=== PATIENT | female | born 1990 | race Two or more races ===

== ENCOUNTER 2019-12-08 14:58 | Observation (INO) | payer OTHER | END 2019-12-08 16:15 | disposition home or self-care (01) | DRG 833 | LOC: LDRP 14:58 | PROVIDERS: ADMIT Specialist; ATTEND Specialist | DX: O24.415 Gestational diabetes mellitus in pregnancy, controlled by oral hypoglycemic drugs (principal); Z3A.31 31 weeks gestation of pregnancy | CPT/HCPCS: 76818; 81002; 82962; G0378 ==

== ENCOUNTER 2019-12-13 15:30 | Observation (INO) | payer OTHER | END 2019-12-13 16:40 | disposition home or self-care (01) | DRG 833 | LOC: LDRP 15:30 | PROVIDERS: ADMIT Obstetrics & Gynecology; ATTEND Obstetrics & Gynecology | DX: O24.419 Gestational diabetes mellitus in pregnancy, unspecified control (principal); Z87.891 Personal history of nicotine dependence; Z3A.32 32 weeks gestation of pregnancy | CPT/HCPCS: 59025; 76818; 81002; 82948; 82962; G0378 ==

== ENCOUNTER 2019-12-15 15:11 | Observation (INO) | payer OTHER ==
[2019-12-15] MEDS ORDERED: METF-370 PO (16:41)
[2019-12-15] MEDS ORDERED: PREN-96 PO (16:41)
== END 2019-12-15 16:55 | disposition home or self-care (01) | DRG 833 ==
LOC: LDRP 15:11
PROVIDERS: ADMIT Specialist; ATTEND Specialist
DX: O24.415 Gestational diabetes mellitus in pregnancy, controlled by oral hypoglycemic drugs (principal); Z3A.32 32 weeks gestation of pregnancy
CPT/HCPCS: 76818; 81002; 82962; G0378

== ENCOUNTER 2020-01-25 10:00 | Observation (INO) | payer OTHER ==
[~2020-01-25 10:00] MED LIST: METF-370 PO; PREN-96 PO
[2020-01-25 11:00] LABS: Basophils # (auto) 0 10 ^3/uL (0-0.2); Basophils % (auto) 0.4 % (0.0-2.0); Eosinophils # (auto) 0.1 10 ^3/uL (0-0.8); Eosinophils % (auto) 0.8 % (0.0-7.0); Hematocrit 37.5 % (36.0-46.0); Hemoglobin 12.8 g/dL (12.2-16.2); Lymphocytes # (auto) 2.3 10 ^3/uL (0.4-5.4); Lymphocytes % (auto) 27.6 % (10.0-50.0); Mean Corpuscular Hemoglobin 31.2 pg (28.0-32.0); Mean Corpuscular Volume 91.6 fL (80.0-100.0); Monocytes # (auto) 0.6 10 ^3/uL (0-1.3); Monocytes % (auto) 6.9 % (0.0-12.0); Neutrophils # (auto) 5.3 10 ^3/uL (1.6-8.6); Neutrophils % (auto) 64.3 % (37.0-80.0); Nucleated Red Blood Cells % 0.2 %; Platelet Count (auto) 214 10^3/uL (140-450); Red Blood Cells 4.09 10^6/uL (4.0-5.20); White Blood Cell 8.3 10^3/uL (4.4-10.8)
[2020-01-25 11:13] LABS: INR 0.9 (0.9-1.15); Partial Thromboplastin Time 26.5 sec (23.64-32.05)
[2020-01-25 11:13] LABS: Urine Bacteria MANY /hpf (None Seen); Urine Blood Negative /uL (Negative); Urine Mucus FEW (None Seen); Urine Specific Gravity 1.019 (1.001-1.035); Urine WBC 5 /hpf (0 - 5)
[2020-01-25 11:14] LABS: Albumin 2.6 g/dL (3.4-5.0); Calcium 8.4 mg/dL (8.5-10.1); Potassium 4.1 mmol/L (3.5-5.1)
[2020-01-25 11:18] LABS: Bilirubin, Total 0.4 mg/dL (0.2-1.0); Total Protein 6.7 g/dL (6.4-8.2); Uric Acid 2.6 mg/dL (2.6-6.0)
== END 2020-01-25 12:05 | disposition home or self-care (01) | DRG 833 ==
LOC: LDRP 10:00
PROVIDERS: ADMIT Specialist; ATTEND Specialist
DX: O62.9 Abnormality of forces of labor, unspecified (principal); Z3A.38 38 weeks gestation of pregnancy
CPT/HCPCS: 36415; 59025; 80053; 81001; 81002; 84550; 85025; 85610; 85730; G0378

== ENCOUNTER 2020-01-27 09:16 | Inpatient (IN) | payer OTHER ==
[~2020-01-27] VITALS: Ht 167.6 cm; Wt 77.1 kg
[2020-01-27 13:16] LABS: Urine Total Volume, 24 Hours 1200 mL
[2020-01-27 13:58] LABS: Protein, Urine 46 mg/dL (0.0-11.9)
[2020-01-27 14:03] LABS: 24 Hr. Total Protein, Urine 552 mg/24 Hr (<149.1)
[2020-01-27] MEDS ORDERED: PHISODERM TOP SOLN 240ML BTL TOP PRN (14:15)
[2020-01-27] MEDS ORDERED: LACT. RINGERS/OXYTOCIN 20UNITS 1,000 ML IV SCH (14:15)
[2020-01-27] MEDS ORDERED: DERMOPLAST 60ML BOTTLE TOP PRN (14:15)
[2020-01-27] MEDS ORDERED: WITCH HAZEL-GLYCERIN PAD TOP PRN (14:15)
[2020-01-27] MEDS ORDERED: LIDOCAINE 2%HCL (LOCAL ANESTH.) INJ 20ML MDV ID PRN (14:15)
[2020-01-27 15:19] LABS: INR 0.91 (0.9-1.15); Partial Thromboplastin Time 26.3 sec (23.64-32.05)
[2020-01-27 15:20] LABS: Basophils # (auto) 0 10 ^3/uL (0-0.2); Basophils % (auto) 0.3 % (0.0-2.0); Eosinophils # (auto) 0.1 10 ^3/uL (0-0.8); Eosinophils % (auto) 0.6 % (0.0-7.0); Hematocrit 40.3 % (36.0-46.0); Hemoglobin 13.5 g/dL (12.2-16.2); Lymphocytes # (auto) 2.1 10 ^3/uL (0.4-5.4); Lymphocytes % (auto) 23.9 % (10.0-50.0); Mean Corpuscular Hemoglobin 30.7 pg (28.0-32.0); Mean Corpuscular Hgb Conc. 33.4 g/dL (32.0-36.0); Mean Corpuscular Volume 91.8 fL (80.0-100.0); Monocytes # (auto) 0.5 10 ^3/uL (0-1.3); Monocytes % (auto) 5.1 % (0.0-12.0); Neutrophils # (auto) 6.3 10 ^3/uL (1.6-8.6); Neutrophils % (auto) 70.1 % (37.0-80.0); Nucleated Red Blood Cells % 0.1 %; Platelet Count (auto) 216 10^3/uL (140-450); Red Blood Cells 4.39 10^6/uL (4.0-5.20)
[2020-01-27 15:21] LABS: Albumin 2.6 g/dL (3.4-5.0); BUN/Creatinine Ratio 14.5; Calcium 8.4 mg/dL (8.5-10.1); Potassium 3.6 mmol/L (3.5-5.1); Uric Acid 3.2 mg/dL (2.6-6.0)
[2020-01-27] MEDS: LACTATED RINGER'S 1,000 ML IV SCH ×2 (15:23→22:15)
[2020-01-27 15:24] LABS: Bilirubin, Total 0.4 mg/dL (0.2-1.0); Total Protein 6.9 g/dL (6.4-8.2)
[2020-01-27] MEDS ORDERED: GLYB1.257 PO (16:13)
[2020-01-27] MEDS ORDERED: TERBUTALINE SULFATE 1 MG/ML 1ML VIAL SC ONE (17:00)
[2020-01-27 17:04] LABS: Urine Bacteria FEW /hpf (None Seen); Urine Blood Negative /uL (Negative); Urine Mucus FEW (None Seen); Urine Specific Gravity 1.017 (1.001-1.035); Urine WBC 1 /hpf (0 - 5)
[2020-01-27 17:16] LABS: Alcohol, Urine < 3.0 mg/dL (0-10); Amphetamine Screen, Urine NEGATIVE (NEGATIVE); Barbiturate Scree,Urine NEGATIVE (NEGATIVE); Benzodiazephine Screen, Urine NEGATIVE (NEGATIVE); Cannabinoid Screen, Urine NEGATIVE (NEGATIVE); Cocaine Screen, Urine NEGATIVE (NEGATIVE); Opiate Scree,Urine NEGATIVE (NEGATIVE); Phencyclidine Screen, Urine NEGATIVE (NEGATIVE)
--- NOTE | 2020-01-27 23:00 | NUR ---
Dr. Osorio in nurses station. Made aware of blood pressures. Orders received to continue with current plan of care and to perform a fasting blood sugar at 01/28/2020 at 0530.
[2020-01-27] MEDS: IBUPROFEN 600 MG TAB PO PRN (23:50)
[2020-01-28] VITALS (9 sets, daily range): BP systolic 122–148; BP diastolic 70–94
--- NOTE | 2020-01-28 00:14 | NUR ---
Ambulation: Patient OOB with standby assistance by RN. Patient ambulated to bathroom with steady gait. Patient able to void 250ml without difficulty. Pericare teaching provided with returned demonstration by patient. Clean gown provided. Patient ambulated to bed in room 8B via steady gait and no distress noted.
[2020-01-28] MEDS: IBUPROFEN 600 MG TAB PO PRN ×2 (07:21→21:43)
--- NOTE | 2020-01-28 11:40 | NUR ---
Dr Devon liz on patient, blood pressures x 3 reviewed t/o this shift. orders to continue to monitor at this time Addendum: 01/28/20 at 1141 by JAKUB ALONZO RN Amended: Links added.
--- NOTE | 2020-01-28 20:16 | NUR ---
SBAR given to residential concierge physician including BP obtained on this shift. Orders received to continue current POC.
--- NOTE | 2020-01-28 20:40 | NUR ---
Provider calls unit, orders received for Labetalol 100mg PO BID.
[2020-01-28] MEDS: LABETALOL HCL 200 MG TAB PO SCH (21:45)
[2020-01-29 02:46] VITALS: BP 126/76
[2020-01-29] MEDS: IBUPROFEN 600 MG TAB PO PRN (05:01)
[2020-01-29 07:29] VITALS: BP 138/78
--- NOTE | 2020-01-29 09:15 | NUR ---
report given to Megan Farooq RN
--- NOTE | 2020-01-29 10:08 | NUR ---
Discharge: Discharge instructions given as ordered. Pt encouraged to follow up with [facility] as instructed. All questions and concerns addressed. Patient verbalized understanding. Medication reconciliation completed and copy given to patient. All required/requested vaccines given and copies of vaccinations given to patient. Patient encouraged to prepare to depart unit.
[2020-01-29] MEDS: LABETALOL HCL 200 MG TAB PO SCH (10:13)
--- NOTE | 2020-01-29 10:40 | NUR ---
Labetelol 100mg bid #[id number] called into pts pharmacy [facility] on [address] Gates orders
[2020-01-29 11:00] VITALS: BP 127/85
--- NOTE | 2020-01-29 12:00 | NUR ---
Discharge: Patient taken to vehicle ambulating with all personal belongings, accompanied by staff and family member. No distress noted at time of departure, no adverse changes in status since initial assessment.
== END 2020-01-29 12:00 | disposition home or self-care (01) | DRG 806 ==
LOC: LDRP 09:16 → OBSVTOIN 14:20 → LDRP 15:29
PROVIDERS: ADMIT Specialist; ATTEND Specialist
PROC: 10E0XZZ Delivery of Products of Conception, External Approach (ICD-10-PCS; principal; 2010-01-26)
PROC: 10907ZC Drainage of Amniotic Fluid, Therapeutic from Products of Conception, Via Natural or Artificial Opening (ICD-10-PCS; 2020-01-27)
DX: O24.429 Gestational diabetes mellitus in childbirth, unspecified control (principal); O71.4 Obstetric high vaginal laceration alone; Z37.0 Single live birth; O13.4 Gestational [pregnancy-induced] hypertension without significant proteinuria, complicating childbirth; Z3A.38 38 weeks gestation of pregnancy; Z20.828 Contact with and (suspected) exposure to other viral communicable diseases
CPT/HCPCS: 36415; 59025; 59409; 76818; 80053; 80307; 81001; 81002; 82948; 82962; 84112; 84156; 84550; 85025; 85610; 85730; 86592; 86850; 86900; 86901; 96360; 96361; 96365; 96366; G0378; J2590

== ENCOUNTER 2020-12-02 10:05 | Emergency (ER) | payer OTHER ==
[~2020-12-02] VITALS: Ht 167.6 cm; Wt 77.1 kg
[~2020-12-02 10:05] MED LIST changes: +GLYB1.257 PO
[2020-12-02] MEDS ORDERED: SODIUM CHLORIDE 0.9% 1,000 ML IVB ONE (11:00)
[2020-12-02 11:45] LABS: Basophils # (auto) 0.1 10 ^3/uL (0-0.2); Basophils % (auto) 1.5 % (0.0-2.0); Eosinophils # (auto) 0.1 10 ^3/uL (0-0.8); Eosinophils % (auto) 1.8 % (0.0-7.0); Hematocrit 43.7 % (36.0-46.0); Hemoglobin 14.9 g/dL (12.2-16.2); Lymphocytes # (auto) 1.8 10 ^3/uL (0.4-5.4); Lymphocytes % (auto) 25.1 % (10.0-50.0); Mean Corpuscular Hemoglobin 31.9 pg (28.0-32.0); Mean Corpuscular Hgb Conc. 34.1 g/dL (32.0-36.0); Mean Corpuscular Volume 93.6 fL (80.0-100.0); Monocytes # (auto) 0.3 10 ^3/uL (0-1.3); Monocytes % (auto) 4.6 % (0.0-12.0); Neutrophils # (auto) 4.8 10 ^3/uL (1.6-8.6); Nucleated Red Blood Cells % 0.1 %; Platelet Count (auto) 293 10^3/uL (140-450); Red Blood Cells 4.67 10^6/uL (4.0-5.20); Red Cell Distribution Width 13.4 % (11.8-14.3); White Blood Cell 7.2 10^3/uL (4.4-10.8)
[2020-12-02 12:06] LABS: Albumin 3.3 g/dL (3.4-5.0); Calcium 8.9 mg/dL (8.5-10.1); Potassium 3.9 mmol/L (3.5-5.1)
[2020-12-02 12:12] LABS: BUN/Creatinine Ratio 16.9; Bilirubin, Total 0.5 mg/dL (0.2-1.0)
[2020-12-02 14:27] VITALS: BP 124/59
== END 2020-12-02 15:56 | disposition home or self-care (01) ==
LOC: ER 10:05
DX: O46.91 Antepartum hemorrhage, unspecified, first trimester (principal); O26.891 Other specified pregnancy related conditions, first trimester; R73.9 Hyperglycemia, unspecified; Z3A.01 Less than 8 weeks gestation of pregnancy
CPT/HCPCS: 36415; 76801; 76817; 80053; 84702; 85025; 96360; 99284; J7030